=== PATIENT | female | born 1950 | race Caucasian/White ===

== ENCOUNTER 2018-10-25 20:39 | Observation (INO) ==
--- NOTE | 2018-10-25 21:05 | ED ---
HPI General Chief Complaint: Chest Pain Stated Complaint: Chest Pain Time Seen by Provider: 10/25/18 21:03 Source: patient Mode of arrival: ambulatory Limitations: no limitations History of Present Illness HPI narrative: 68-year-old female patient with history of hypertension, high cholesterol, and previous cardiac history, presents to the ER today because she started having substernal chest pains or radiation to the neck, states that she had taken her own nitroglycerin without significant relief, and it started to go away on its own, but then in additional episode happened today again this evening, she called ambulance and was given nitroglycerin and aspirin. She states is completely resolved now. She had some shortness of breath earlier but denies any other symptoms. Patient is a patient of Dr. Mathew, brings along paperwork it looks like she has had an [place] according to paperwork. Modifying Factors: None Associated Signs & Symptoms: Intermittent chest pains Risk Factors: Cardiac history Related Data Home Medications Medication Instructions Recorded Confirmed aspirin 81 mg PO DAILY 10/25/18 10/25/18 rosuvastatin [Crestor] 10 mg PO DAILY 10/25/18 10/25/18 Allergies Allergy/AdvReac Type Severity Reaction Status Date / Time meperidine [From Demerol] Allergy Rash Verified 10/25/18 20:57 Penicillins Allergy Rash Verified 10/25/18 20:57 Review of Systems ROS: all other systems reviewed are negative [facility] Medical History Medical History Kidney stones (Acute) Social History Social History Substance History: No History of Abuse Second Hand Smoke Exposure: No Smoking Status: Never smoker How Often Do You Have a Drink Containing Alcohol: 2 to 4 times a month Recent Travel in [facility] within the Last 8 Weeks: No Recent Out of Country Travel within the Last 8 Weeks: No Immunization History Tetanus Immunization: Unsure Exam Narrative Exam Narrative: GENERAL: Well-developed elderly female patient currently in mild distress. Awake and oriented x3. SKIN: Focused skin assessment warm/dry. HEAD: Atraumatic. Normocephalic. EYES: Pupils equal and round. No scleral icterus. No injection or drainage. ENT: No nasal bleeding or discharge. Mucous membranes pink and moist. NECK: Trachea midline. No JVD. CARDIOVASCULAR: Regular rate and rhythm. No murmur appreciated. RESPIRATORY: No accessory muscle use. Clear to auscultation. Breath sounds equal bilaterally. GASTROINTESTINAL: Abdomen soft, non-tender, nondistended. Hepatic and splenic margins not palpable. MUSCULOSKELETAL: No obvious deformities. No clubbing. No cyanosis. No edema. NEUROLOGICAL: Awake and alert. No obvious cranial nerve deficits. Motor grossly within normal limits. Normal speech. PSYCHIATRIC: Appropriate mood and affect; insight and judgment normal. Course Initial Documented Vital Signs Temperature 98.6 F 10/25/18 20:54 Pulse Rate 68 10/25/18 20:54 Respiratory Rate 18 10/25/18 20:54 Blood Pressure 136/81 10/25/18 20:54 Pulse Oximetry 96 10/25/18 20:54 Last Documented Vital Signs Temperature 98.6 F 10/25/18 20:54 Pulse Rate 68 10/25/18 20:54 Respiratory Rate 18 10/25/18 20:54 Blood Pressure 136/81 10/25/18 20:54 Pulse Oximetry 96 10/25/18 20:54 Medical Decision Making MDM Narrative Medical decision making narrative: Chest x-ray, lab work, was fairly unremarkable; but considering her history, my plan would be to admit the patient for further evaluation and a chest pain center. Medical Screen Exam Complete: Yes Emergency Medical Condition: Yes Differential Diagnosis Differential Diagnosis: ACS versus dysrhythmia versus costochondritis versus anxiety Lab Data Lab results reviewed: Yes I reviewed the patient's lab results. Result diagrams: 10/25/18 21:07 10/25/18 21:07 Lab Results 10/25/18 10/25/18 Range/Units 21:07 21:07 WBC 5.3 (4.0-11.0) th/mm3 RBC 4.40 (4.00-5.30) mil/mm3 Hgb 13.1 (11.6-15.3) gm/dL Hct 38.3 (35.0-46.0) % MCV 87.2 (80.0-100.0) fL MCH 29.7 (27.0-34.0) pg MCHC 34.1 (32.0-36.0) % RDW 13.0 (11.6-17.2) % Plt Count 268 (150-450) th/mm3 MPV 8.1 (7.0-11.0) fL Neut % (Auto) 43.1 (16.0-70.0) % Lymph % (Auto) 44.5 H (9.0-44.0) % [place] % (Auto) 9.5 H (0.0-8.0) % Eos % (Auto) 2.1 (0.0-4.0) % Baso % (Auto) 0.8 (0.0-2.0) % Neut # (Auto) 2.3 (1.8-7.7) th/mm3 Lymph # (Auto) 2.4 (1.0-4.8) th/mm3 [place] # (Auto) 0.5 (0.0-0.9) th/mm3 Eos # (Auto) 0.1 (0.0-0.4) th/mm3 Baso # (Auto) 0.0 (0.0-0.2) th/mm3 WBC Differential . Differential Comment Auto diff final Sodium 138 (136-145) meq/L Potassium 3.9 (3.5-5.1) meq/L Chloride 104 (98-107) meq/L Carbon Dioxide 29.6 (21.0-32.0) meq/L Anion Gap 4 L (5-15) meq/L BUN 18 (7-18) mg/dL Creatinine 0.65 (0.50-1.00) mg/dL Estimated GFR Greater than 89 (>89) mL/min Random Glucose 96 (74-106) mg/dL Calcium 8.8 (8.5-10.1) mg/dL Total Bilirubin 0.3 (0.2-1.0) mg/dL AST 22 (15-37) U/L ALT 37 (10-53) U/L Alkaline Phosphatase 46 (45-117) U/L Troponin I Less than 0.02 L (0.02-0.05) ng/mL Total Protein 6.9 (6.4-8.2) g/dL Albumin 3.8 (3.4-5.0) g/dL Imaging Data Attestation: I personally reviewed and interpreted this imaging study as follows : Radiologist's impression: Chest X-Ray 10/25/18 21:03 CONCLUSION: 1. No acute cardiopulmonary disease. ECG Data Attestation: I personally reviewed and interpreted this ECG as follows: Interpretation: EKG shows normal sinus rhythm at a rate of 60 bpm. No signs of acute ST elevations or depressions. Discharge Plan Discharge Order Discharge Orders: ED Use Only Admit Order (Routine); Ordered 10/25/18 Ordered By: Celestino Maya Discharge Details Anticipated Discharge Date: 10/25/18 Physicians Team ED Provider: Celestino Maya Primary Care Provider: Milagro Chicas Rxs /Orders / Referrals /Forms Prescriptions: No Action aspirin 81 mg Tablet,Delayed Release (Dr/Ec) 81 mg PO DAILY RF: 0 rosuvastatin [Crestor] 10 mg Tablet 10 mg PO DAILY RF: 0 Status ED Status: Admitted Observation Patient
--- NOTE | 2018-10-25 21:37 | XR ---
EXAM DATE: 10/25/2018 9:34 PM EST AGE/SEX: 68 years / Female INDICATIONS: Chest pains 30 min prior to arrival. CLINICAL DATA: This is the patient's initial encounter. Patient reports that signs and symptoms have been present for 1 day and indicates a pain score of 5/10. MEDICAL/SURGICAL HISTORY: None. None. COMPARISON: No prior exams available for comparison. FINDINGS: A single AP view of the chest demonstrates the lungs to be symmetrically aerated without evidence of mass, infiltrate or effusion. The cardiomediastinal contours are unremarkable. Osseous structures a re intact. CONCLUSION: 1. No acute cardiopulmonary disease. Electronically signed by: Jayce Jorgensen MD Board Certified Radiologist 10/25/2018 9:36 PM EST
[2018-10-25 21:42] LABS: Baso % (Auto) 0.8 % (0.0-2.0); Eos # (Auto) 0.1 th/mm3 (0.0-0.4); Eos % (Auto) 2.1 % (0.0-4.0); Hematocrit 38.3 % (35.0-46.0); Hemoglobin 13.1 gm/dL (11.6-15.3); Lymph # (Auto) 2.4 th/mm3 (1.0-4.8); Lymph % (Auto) 44.5 % (9.0-44.0); Mean Corpuscular HGB Conc 34.1 % (32.0-36.0); Mean Corpuscular Hemoglobin 29.7 pg (27.0-34.0); Mean Corpuscular Volume 87.2 fL (80.0-100.0); Mean Platelet Volume 8.1 fL (7.0-11.0); Mono # (Auto) 0.5 th/mm3 (0.0-0.9); Mono % (Auto) 9.5 % (0.0-8.0); Neut # (Auto) 2.3 th/mm3 (1.8-7.7); Neut % (Auto) 43.1 % (16.0-70.0); Platelet Count 268 th/mm3 (150-450); White Blood Count 5.3 th/mm3 (4.0-11.0)
[2018-10-25 21:49] LABS: Albumin 3.8 g/dL (3.4-5.0); Anion Gap 4 meq/L (5-15); Aspartate Aminotransferase 22 U/L (15-37); Blood Urea Nitrogen 18 mg/dL (7-18); Calcium 8.8 mg/dL (8.5-10.1); Carbon Dioxide 29.6 meq/L (21.0-32.0); Chloride 104 meq/L (98-107); Glomerular Filtration Rate Greater Than 89 mL/min (>89); Glucose,Random 96 mg/dL (74-106); Potassium 3.9 meq/L (3.5-5.1); Sodium 138 meq/L (136-145)
[2018-10-25 21:50] LABS: Alanine Aminotransferase 37 U/L (10-53)
[2018-10-25 21:54] LABS: Alkaline Phosphatase 46 U/L (45-117); Total Protein 6.9 g/dL (6.4-8.2)
[2018-10-26 00:42] LABS: Creatine Kinase 92 U/L (26-192)
[2018-10-26 04:50] LABS: Creatine Kinase 83 U/L (26-192)
--- NOTE | 2018-10-26 08:18 | P.HPCA ---
History of Present Illness Primary Care Physician: Milagro Chicas DO Chief Complaint: Chest pain History of Present Illness: This is a 68-year-old female history of hyperlipidemia that presents to ED via [facility] with complaint of chest discomfort. Patient states that she has had an episode in June and was referred to Dr. Barrera by PCP for further evaluation. States that she saw him last month and had a chemical stress test and a 2D echo and believes everything was okay. She had a similar discomfort last evening about 7:00 which is about half hour after eating dinner describes as a squeezing in her neck and then a central sharp uncomfortable chest discomfort in her chest. She took a sublingual nitroglycerin within about 5 minutes. Did not notice any difference. called 911. Symptoms essentially resolved within about 15 minutes but recurred again while in ambulance. She was given more nitroglycerin which would not seem to make a difference but the discomfort resolved within about 5-10 minutes. Denies associated shortness of breath, nausea, or diaphoresis. Denies recent illness. Past medical history: Hyperlipidemia. Denies hypertension, diabetes, and known CAD. Family history: She states that her father passed weight 72 of an ND. Social history: Lifetime non-smoker. Occasional glass of wine. She is . Retired nurse. - Diagnosis (1) Chest pain (2) Hyperlipidemia Review of Systems General: Patient denies fevers, chills, and recent travel. HEENT: Patient denies headache, sore throat, difficulty swallowing. Cardiovascular: Has the chest discomfort as mentioned above. Denies sensation of heart beating rapidly or irregularly. No syncope. Denies diaphoresis. Respiratory: Denies shortness of breath or inspirational chest discomfort. Denies coughing wheezing or hemoptysis. GI: Patient denies nausea, vomiting, diarrhea, abdominal pain, bloody stools. Musculoskeletal: Patient denies joint pain or edema. Denies calf pain or edema. Neurovascular: Patient denies numbness, tingling, weakness in extremities. Denies headache. Endocrine: Denies polyuria and polydipsia. Hematologic: Denies easy bruising. Skin: Denies rash or itching. PMFSH - History History Provided By: Patient - Medical History Medical History: Medical History (Last Reviewed 10/25/18 @ 21:05 by Celestino Maya MD) Kidney stones - Tobacco History Second Hand Smoke Exposure: No Smoking Status: Never smoker - Alcohol History How Often Do You Have a Drink Containing Alcohol: 2 to 4 times a month - Substance Use History Substance History: No History of Abuse - Travel History Recent Travel in the [place] Within the Last 8 Weeks: No Recent Travel Out of the Country Within the Last 8 Weeks: No - Immunization History Tetanus Immunization: Unsure Medications and Allergies Active Medications: Active Medications Aspirin (Aspirin) 325 mg PO DAILY [facility]AND Non-Formulary Medication (Rosuvastatin) 10 mg PO DAILY [facility]AND Sodium Chloride (Ns Flush) 2 ml IV.FLUSH UNSCH PRN PRN Reason: FLUSH AFTER USING IV ACCESS Sodium Chloride (Ns Flush) 2 ml IV.FLUSH BID RAND Sodium Chloride (Ns Flush) 2 ml IV.FLUSH PRN PRN PRN Reason: FLUSH AFTER USING IV ACCESS Allergies Allergy/AdvReac Type Severity Reaction Status Date / Time meperidine [From Demerol] Allergy Rash Verified 10/25/18 20:57 Penicillins Allergy Rash Verified 10/25/18 20:57 Home Medications Medication Instructions Recorded Confirmed Type aspirin 81 mg PO DAILY 10/25/18 10/25/18 History rosuvastatin [Crestor] 10 mg PO DAILY 10/25/18 10/25/18 History Exam Vital signs: Vital Signs 10/25/18 20:54 10/25/18 21:03 10/25/18 22:35 Temperature 98.6 F Pulse Rate 68 66 Respiratory Rate 18 18 Blood Pressure 136/81 119/68 Pulse Oximetry 96 98 98 10/25/18 23:49 10/26/18 00:34 10/26/18 03:46 Temperature 97.6 F 97.7 F Pulse Rate 62 58 L 58 L Respiratory Rate 14 14 Blood Pressure 110/67 122/77 Pulse Oximetry 96 99 Intake & Output 10/25/18 10/26/18 10/26/18 18:59 06:59 18:59 Intake Total 240 / 240 Balance 240 / 240 Weight 61.235 kg Intake: Oral 240 / 240 Other: # Voids 1 Date of Last Bowel Movement 10/25/18 Weight On Admission 135 kg Narrative: GENERAL: This is a well-nourished, well-developed patient, in no apparent distress. Patient speaks in clear complete sentences. Patient is pleasant. HEENT: Head is atraumatic and normocephalic. Neck is supple without lymphadenopathy and trachea is midline. No JVD or carotid bruits. CARDIOVASCULAR: Regular rate and rhythm without murmurs, gallops, or rubs. RESPIRATORY: Clear to auscultation. Breath sounds equal bilaterally. No wheezes , rales, or rhonchi. Chest wall is nontender. No use of accessory muscles. GASTROINTESTINAL: Abdomen is nontender, nondistended. Abdomen soft. No obvious pulsatile mass or bruit. No CVA tenderness. Strong femoral pulses bilaterally. Normal bowel sounds in all quadrants. MUSCULOSKELETAL: Patient is moving upper and lower extremities freely. No calf tenderness or edema, no Homans sign. Strong pulses in upper and lower extremities. NEUROLOGICAL: Patient is alert and oriented. Cranial nerves 2-12 are grossly intact. No focal deficits and speech is clear. SKIN: No rash and turgor is normal. Results 10/25/18 21:07 10/25/18 21:07 Cardiac Enzymes 10/25/18 10/26/18 10/26/18 Range/Units 21:07 00:04 03:50 AST 22 (15-37) U/L Troponin I Less than 0.02 L Less than 0.02 L Less than 0.02 L (0.02-0.05) ng/mL CBC 10/25/18 Range/Units 21:07 WBC 5.3 (4.0-11.0) th/mm3 RBC 4.40 (4.00-5.30) mil/mm3 Hgb 13.1 (11.6-15.3) gm/dL Hct 38.3 (35.0-46.0) % Plt Count 268 (150-450) th/mm3 Neut # (Auto) 2.3 (1.8-7.7) th/mm3 Lymph # (Auto) 2.4 (1.0-4.8) th/mm3 [place] # (Auto) 0.5 (0.0-0.9) th/mm3 Eos # (Auto) 0.1 (0.0-0.4) th/mm3 Baso # (Auto) 0.0 (0.0-0.2) th/mm3 Comprehensive Metabolic Panel 10/25/18 Range/Units 21:07 Sodium 138 (136-145) meq/L Potassium 3.9 (3.5-5.1) meq/L Chloride 104 (98-107) meq/L Carbon Dioxide 29.6 (21.0-32.0) meq/L BUN 18 (7-18) mg/dL Creatinine 0.65 (0.50-1.00) mg/dL Calcium 8.8 (8.5-10.1) mg/dL AST 22 (15-37) U/L ALT 37 (10-53) U/L Alkaline Phosphatase 46 (45-117) U/L Total Protein 6.9 (6.4-8.2) g/dL Albumin 3.8 (3.4-5.0) g/dL Intake and Output 10/25/18 10/26/18 10/26/18 22:59 06:59 14:59 Intake Total 240 / 240 Balance 240 / 240 Intake: Oral 240 / 240 Other: # Voids 1 Date of Last Bowel Movement 10/25/18 Weight 61.235 kg 61.235 kg Weight On Admission 135 kg - Imaging and Cardiology Imaging: Impressions Chest X-Ray 10/25/18 21:03 CONCLUSION: 1. No acute cardiopulmonary disease. EKG interpretations - EKG EKG shows: sinus rhythm (EKGs are sinus rhythm with nonspecific anterolateral ST -T T changes.) Caprini VTE Risk Assessment Caprini VTE Risk Assessment: Moderate/High Risk (score >= 2) Caprini Risk Assessment Model: Point Value = 1 Point Value = 2 Point Value = 3 Point Value = 5 Age 41-60 Minor surgery BMI > 25 kg/m2 Swollen legs Varicose veins or History of unexplained or recurrent spontaneous Oral contraceptives or hormone replacement Sepsis (< 1 month) Serious lung disease, including pneumonia (< 1 month) Abnormal pulmonary function Acute myocardial infarction Congestive heart failure (< 1 month) History of inflammatory bowel disease Medical patient at bed rest Age 61-74 Arthroscopic surgery Major open surgery (> 45 min) Laparoscopic surgery (> 45 min) Malignancy Confined to bed (> 72 hours) Immobilizing plaster cast Central venous access Age >= 75 History of VTE Family history of VTE Factor V Leiden Prothrombin [id number] Lupus anticoagulant Anticardiolipin antibodies Elevated serum homocysteine Heparin-induced thrombocytopenia Other congenital or acquired thrombophilia Stroke (< 1 month) Elective arthroplasty Hip, pelvis, or leg fracture Acute spinal cord injury (< 1 month) Prophylaxis Regimen: Total Risk Factor Score Risk Level Prophylaxis Regimen 0-1 Low Early ambulation 2 Moderate Order ONE of the following: *Sequential Compression Device (SCD) *Heparin 5000 units SQ BID 3-4 Higher Order ONE of the following medications: *Heparin 5000 units SQ TID *Enoxaparin/Lovenox 40 mg SQ daily (WT < 150 kg, CrCl > 30 mL/min) *Enoxaparin/Lovenox 30 mg SQ daily (WT < 150 kg, CrCl > 10-29 mL/min) *Enoxaparin/Lovenox 30 mg SQ BID (WT < 150 kg, CrCl > 30 mL/min) AND/OR *Sequential Compression Device (SCD) 5 or more Highest Order ONE of the following medications: *Heparin 5000 units SQ TID (Preferred with Epidurals) *Enoxaparin/Lovenox 40 mg SQ daily (WT < 150 kg, CrCl > 30 mL/min) *Enoxaparin/Lovenox 30 mg SQ daily (WT < 150 kg, CrCl > 10-29 mL/min) *Enoxaparin/Lovenox 30 mg SQ BID (WT < 150 kg, CrCl > 30 mL/min) AND *Sequential Compression Device (SCD) Assessment and Plan - Assessment (1) Chest pain Code(s): R07.9 - Chest pain, unspecified Status: Acute (2) Hyperlipidemia Code(s): E78.5 - Hyperlipidemia, unspecified Status: Acute - Plan * Chest pain: Patient has had serial cardiac enzymes and EKGs for ruling out purposes. Had recent cardiac workup with Dr. Barrera and she believes stress test came back essentially normal. Patient will be seen by Dr. Arrington of cardiology in the chest pain center. I discussed this patient with Dr. Barrera as well, states that if she is feeling fine at this time she can go home and his office will call her for an appointment. Patient should return to ED for interval issues. * Hyperlipidemia: Resume medication. Patient is stable at this time. She is agreeable to this plan. H&P: Quality - VTE Deep Vein Thrombosis/Pulmonary Embolism Present on Admission: No
[2018-10-26] MEDS ORDERED: Aspirin 325 MG Tablet PO SCH (09:00)
[2018-10-26 09:21] VITALS: BP 141/79; PULSE 57; RESP 15; TEMP 98.4; O2SAT 100
--- NOTE | 2018-10-26 10:09 | P.PNCA ---
Subjective Interval history: Very pleasant 68-year-old patient of Dr. Rahman presents with substernal chest pain. There were no particular precipitating event however she did take her own nitroglycerin without significant relief. She has had one previous episode which had resulted in the evaluation by Dr. Mary Ramirez. Her discomfort resolved with a second nitroglycerin on the way to the hospital and she has had no recurrence since. Patient was seen and evaluated by the physician insurance sales associate and then seen and examined by me personally. In the meantime discussion was carried out with Dr. Mary Ramirez to determine how he would like to proceed. Course is well-documented in the chart currently. In essence she is ruled out for ACS and per her physician will be discharged to follow-up with his care to determine if further evaluation is needed. Medications and Allergies Active Medications: Active Medications Aspirin (Aspirin) 325 mg PO DAILY [facility] Last Admin: 10/26/18 08:51 Dose: Not Given Atorvastatin Calcium (Lipitor) 20 mg PO DAILY [facility] Last Admin: 10/26/18 08:51 Dose: Not Given Sodium Chloride (Ns Flush) 2 ml IV.FLUSH UNSCH PRN PRN Reason: FLUSH AFTER USING IV ACCESS Sodium Chloride (Ns Flush) 2 ml IV.FLUSH BID [facility] Last Admin: 10/26/18 08:51 Dose: Not Given Sodium Chloride (Ns Flush) 2 ml IV.FLUSH PRN PRN PRN Reason: FLUSH AFTER USING IV ACCESS Allergies Allergy/AdvReac Type Severity Reaction Status Date / Time meperidine [From Demerol] Allergy Rash Verified 10/25/18 20:57 Penicillins Allergy Rash Verified 10/25/18 20:57 Home Medications Medication Instructions Recorded Confirmed Type aspirin 81 mg PO DAILY 10/25/18 10/25/18 History rosuvastatin [Crestor] 10 mg PO DAILY 10/25/18 10/25/18 History Physical Exam Vital signs: Vital Signs 10/25/18 20:54 10/25/18 21:03 10/25/18 22:35 Temperature 98.6 F Pulse Rate 68 66 Respiratory Rate 18 18 Blood Pressure 136/81 119/68 Pulse Oximetry 96 98 98 10/25/18 23:49 10/26/18 00:34 10/26/18 03:46 Temperature 97.6 F 97.7 F Pulse Rate 62 58 L 58 L Respiratory Rate 14 14 Blood Pressure 110/67 122/77 Pulse Oximetry 96 99 10/26/18 08:00 Temperature 98.4 F Pulse Rate 57 L Respiratory Rate 15 Blood Pressure 141/79 H Pulse Oximetry 100 Intake & Output 10/25/18 10/26/18 10/26/18 18:59 06:59 18:59 Intake Total 240 / 240 Balance 240 / 240 Weight 61.235 kg Intake: Oral 240 / 240 Other: # Voids 1 Date of Last Bowel Movement 10/25/18 10/25/18 Weight On Admission 135 kg Narrative: Well-nourished well-developed lady resting comfortably in bed Skin warm and dry Head normocephalic atraumatic Neck supple no JVD masses nodes or bruits Chest clear to auscultation with no rales wheezes rhonchi and no tenderness Cardiovascular PMI is not displaced the rhythm is regular there are no gallops rubs or murmurs Results 10/25/18 21:07 10/25/18 21:07 Cardiac Enzymes 10/25/18 10/26/18 10/26/18 Range/Units 21:07 00:04 03:50 AST 22 (15-37) U/L Troponin I Less than 0.02 L Less than 0.02 L Less than 0.02 L (0.02-0.05) ng/mL CBC 10/25/18 Range/Units 21:07 WBC 5.3 (4.0-11.0) th/mm3 RBC 4.40 (4.00-5.30) mil/mm3 Hgb 13.1 (11.6-15.3) gm/dL Hct 38.3 (35.0-46.0) % Plt Count 268 (150-450) th/mm3 Neut # (Auto) 2.3 (1.8-7.7) th/mm3 Lymph # (Auto) 2.4 (1.0-4.8) th/mm3 [place] # (Auto) 0.5 (0.0-0.9) th/mm3 Eos # (Auto) 0.1 (0.0-0.4) th/mm3 Baso # (Auto) 0.0 (0.0-0.2) th/mm3 Comprehensive Metabolic Panel 10/25/18 Range/Units 21:07 Sodium 138 (136-145) meq/L Potassium 3.9 (3.5-5.1) meq/L Chloride 104 (98-107) meq/L Carbon Dioxide 29.6 (21.0-32.0) meq/L BUN 18 (7-18) mg/dL Creatinine 0.65 (0.50-1.00) mg/dL Calcium 8.8 (8.5-10.1) mg/dL AST 22 (15-37) U/L ALT 37 (10-53) U/L Alkaline Phosphatase 46 (45-117) U/L Total Protein 6.9 (6.4-8.2) g/dL Albumin 3.8 (3.4-5.0) g/dL Intake and Output 10/25/18 10/26/18 10/26/18 22:59 06:59 14:59 Intake Total 240 / 240 Balance 240 / 240 Intake: Oral 240 / 240 Other: # Voids 1 Date of Last Bowel Movement 10/25/18 10/25/18 Weight 61.235 kg 61.235 kg Weight On Admission 135 kg - Imaging and Cardiology Imaging: Impressions Chest X-Ray 10/25/18 21:03 CONCLUSION: 1. No acute cardiopulmonary disease. Assessment and Plan - Assessment (1) Chest pain Code(s): R07.9 - Chest pain, unspecified Status: Acute Plan: Patient is ruled out for ACS and per her supervisor mill request will be discharged for further eval in his office. This was discussed with the patient and she is very comfortable with this decision. (2) Hyperlipidemia Code(s): E78.5 - Hyperlipidemia, unspecified Status: Acute - Plan * Chest pain: Patient has had serial cardiac enzymes and EKGs for ruling out purposes. Had recent cardiac workup with Dr. Barrera and she believes stress test came back essentially normal. Patient will be seen by Dr. Arrington of cardiology in the chest pain center. I discussed this patient with Dr. Barrera as well, states that if she is feeling fine at this time she can go home and his office will call her for an appointment. Patient should return to ED for interval issues. * Hyperlipidemia: Resume medication. Patient is stable at this time. She is agreeable to this plan.
--- NOTE | 2018-10-26 12:18 | ECG ---
Date Performed: 10/26/2018 Time Performed: 03:44:16 PTAGE: 68 years EKG: SINUS BRADYCARDIA NONSPECIFIC ST & T-WAVE ABNORMALITY BORDERLINE ECG No significant change PREVIOUS TRACING : 10/25/2018 23.54 DOCTOR: Francis Arrington Interpretating Date/Time 10/26/2018 12:17:58
--- NOTE | 2018-10-26 12:20 | ECG ---
Date Performed: 10/25/2018 Time Performed: 23:54:14 PTAGE: 68 years EKG: SINUS BRADYCARDIA NONSPECIFIC ST & T-WAVE ABNORMALITY BORDERLINE ECG No significant change NO PREVIOUS TRACING DOCTOR: Francis Arrington Interpretating Date/Time 10/26/2018 12:18:56
--- NOTE | 2018-10-26 12:22 | ECG ---
Date Performed: 10/25/2018 Time Performed: 21:04:02 PTAGE: 68 years EKG: Sinus rhythm MODERATE ST DEPRESSION ABNORMAL ECG Clinical correlation recommended NO PREVIOUS TRACING DOCTOR: Francis Arrington Interpretating Date/Time 10/26/2018 12:19:51
== END 2018-10-26 10:12 | disposition home or self-care (01) ==
LOC: NEPD 20:39 → NEDA 20:39 → NEPFCDU 22:56
PROVIDERS: ADMIT Internal Medicine Cardiovascular Disease; ATTEND Internal Medicine Cardiovascular Disease
CPT/HCPCS: 71010; 71045; 80053; 82550; 84484; 85025; 93005; 99285; G0378